=== PATIENT | female | born 1995 | race Caucasian/White ===

== ENCOUNTER 2022-10-09 13:40 | Outpatient (CLI) | payer BC, SELFPAY ==
--- NOTE | ~2022-10-09 | US_ITS ---
US breast LT limited INDICATION: Palpable left breast mass. TECHNIQUE: Dedicated Limited left breast ultrasound COMPARISON: No prior studies for comparison. FINDINGS: The left breast is composed of normal heterogeneous echotexture without focal solid or cyst ic mass. IMPRESSION: 1: Normal left breast ultrasound. BI-RADS CATEGORY 1 - NEGATIVE Reviewed, dictated and finalized at location A. RY SUPERVISOR
== END 2022-10-09 13:41 | disposition home or self-care (01) ==
PROVIDERS: Visit Provider Family Medicine
DX: N64.59 Other signs and symptoms in breast (principal); N63.21 Unspecified lump in the left breast, upper outer quadrant
CPT/HCPCS: 76642